=== PATIENT | female | born 1975 | race Caucasian/White ===

== ENCOUNTER 2020-01-26 18:36 | Inpatient (IN) ==
[2020-01-26] MEDS ORDERED: ACETAMINOPHEN 1,000 MG/100 ML VIAL IV STA (19:13)
[2020-01-26] MEDS ORDERED: methylPREDNISolone 125 MG/2 ML VIAL IV STA (19:13)
[2020-01-26] MEDS ORDERED: DiphenhydrAMINE HCL 50 MG/ML VIAL IV STA (19:13)
[2020-01-26] MEDS ORDERED: SODIUM CHLORIDE 0.9% 1000ML 1,000 ML IV SCH (19:15)
[2020-01-26 19:22] LABS: Eosinophils # (auto) 0.09 K/uL (0-0.5); Eosinophils % (auto) 0.6 %; Hemoglobin 13.4 g/dL (12.0-16.0); Immature Granulocytes # (auto) 0.04 K/uL (0.00-0.02); Immature Granulocytes % (auto) 0.3 %; Lymphocytes # (auto) 1.11 K/uL (1.2-3.4); Lymphocytes % (auto) 7.2 %; Mean Corpuscular Hemoglobin 27.5 pg (25-34); Mean Corpuscular Hgb Conc 33.5 g/dL (32-36); Mean Corpuscular Volume 82.1 fL (80-100); Monocytes # (auto) 0.36 K/uL (0.11-0.59); Monocytes % (auto) 2.3 %; Neutrophils % (auto) 89.6 %; Platelet Count 404 K/uL (130-400); RDW Coefficient of Variation 14.1 % (11.5-14.5); RDW Standard Deviation 42.4 fL (36.4-46.3); Red Blood Count 4.87 M/uL (4.2-5.4)
--- NOTE | 2020-01-26 19:22 | Emergency Department Note ---
History of Present Illness General Chief complaint: Allergic Reaction Stated complaint: ALLERGIC REACTION Time Seen by Provider: 01/26/20 18:56 History of Present Illness Maximum Pain Intensity: 7 This is a 44-year-old female presenting to the emergency department for evaluation of allergic reaction symptoms for the past 1 to 2 days. The patient has had an ongoing left breast infection, and was previously on Bactrim. This did not distinctly clear her infection, and she did start Keflex 2 days ago. She states that she took 4 total doses of the antibiotic, with the last dosing being yesterday afternoon. After starting the Keflex she began having hives across her entire body as well as coughing and discomfort in her throat. She did take some Benadryl last evening which did mildly improve her symptoms. Despite stopping the medication she continues to have significant hives. The patient states that she did have a fever of 102.0 F prior to coming into the hospital, but this does seem to have improved upon arrival. The patient does have a past history of breast cancer with left-sided mastectomy and reconstruction. Her last breast surgery was in August of this year at [facility]. She did see her plastic surgeon yesterday, and evidently outpatient CAT scan was performed without evidence of abscess. The patient rates her overall discomfort today is 7/10. Home Medications Home Medications Medication Instructions Recorded Confirmed Type tamoxifen 20 mg tablet 20 mg PO QAM 10/21/19 01/26/20 History goserelin 3.6 mg subcutaneous 3.6 mg SQ Q28D 11/21/19 01/26/20 History implant hydroxyzine HCl 50 mg PO TID PRN 01/26/20 01/26/20 History sulfamethoxazole-trimethoprim 1 tab PO BID 01/26/20 01/26/20 History Allergies Allergy/AdvReac Type Severity Reaction Status Date / Time cephalexin Allergy Intermediate Itchiness Verified 01/26/20 22:03 Past Med/Surg History Medical History Breast cancer, left 07/14/2019 Psoriasis Psoriatic arthritis Surgical History H/O laparoscopy Ovarian cyst History of dilatation and curettage Status post ablation of incompetent vein using laser Bilateral legs Status post left mastectomy with axillary SLN biopsy and immediate reconstruction with glass belt sander on 08/[address] Fox [address]. Nielsen Family History (Updated 10/21/19 @ 10:34 by Janneth Diaz, RN) Mother No problems noted. Father Diabetes Heart palpitations Hypertension Brother No problems noted. Daughter No problems noted. Son No problems noted. Son No problems noted. Son No problems noted. Son Asthma Social History (Updated 10/21/19 @ 10:36 by Janneth Diaz, RN) Smoking Status: Never smoker Cigarettes Per Day: 1/3 PPD x years;; Second Hand Exposure: No; Hx Alcohol Use: No Hx Substance Use: No Preferred Language: Sammarinese Communication Ability: Effective Visual Impairment: No Limitations Hearing Ability: Normal Ski Lift Attendant Required: No Beliefs That Will Affect Care: None marital status: Current Living Situation: Spouse and Family current occupational status: other current occupation: Homemaker Feels Safe at Home: Yes caffeine: Yes (2 cups/day) during the past year weight has: remained stable Review of Systems A total of 10 systems reviewed and were otherwise negative Physical Exam Vital Signs Vital Signs - 24 hr 01/26/20 18:49 01/26/20 19:07 01/26/20 19:37 Temperature 37.5 C Temperature Source Oral Pulse Rate 126 H 108 H 104 H Pulse Rate from SpO2 Sensor 109 H 104 H Respiratory Rate 18 23 19 Respiratory Effort / Characteristics Non-Labored Spontaneous Respiratory Depth Normal Blood Pressure 111/69 139/84 122/94 Blood Pressure Mean 83 98 98 Pulse Oximetry 96 97 96 Oxygen Delivery Method Room Air Sepsis Recent Fever Within 48 Hours No Sepsis New/Unexplained Change in Mental Status N/A Sepsis Action Taken by Nursing No Action Required 01/26/20 19:40 01/26/20 20:55 01/26/20 20:56 Temperature 37.3 C Temperature Source Oral Pulse Rate 88 Pulse Rate from SpO2 Sensor 88 Respiratory Rate 17 Respiratory Effort / Characteristics Respiratory Depth Blood Pressure 128/84 Blood Pressure Mean 94 Pulse Oximetry 94 96 Oxygen Delivery Method Room Air Sepsis Recent Fever Within 48 Hours Sepsis New/Unexplained Change in Mental Status Sepsis Action Taken by Nursing 01/26/20 21:00 01/26/20 21:30 01/26/20 22:00 Temperature Temperature Source Pulse Rate 90 90 82 Pulse Rate from SpO2 Sensor 90 93 H 81 Respiratory Rate 19 24 19 Respiratory Effort / Characteristics Respiratory Depth Blood Pressure 119/80 137/95 132/92 Blood Pressure Mean 85 105 104 Pulse Oximetry 96 95 96 Oxygen Delivery Method Sepsis Recent Fever Within 48 Hours Sepsis New/Unexplained Change in Mental Status Sepsis Action Taken by Nursing VITALS: Vitals are noted on the nurse's note and reviewed by myself. Vital signs with noted tachycardia GENERAL: Well-developed, well-nourished, white female, who is in no acute distress and resting comfortably. Patient is cooperative with the examination. HEAD: Normocephalic atraumatic. EARS: External ear normal. External auditory canals clear, tympanic membranes pearly puentes without erythema or effusion bilaterally. EYES: Pupils equal round and reactive to light and accommodation. Conjunctivae without injection, sclerae without icterus. Extraocular movements intact. NOSE: Patent, turbinates without inflammation or discharge. MOUTH: Mucous membranes moist. Tonsils are not enlarged. Pharynx without erythema, blood, or exudate. Uvula midline. Airway patent. NECK: Supple without nuchal rigidity. No lymphadenopathy. No thyromegaly. Cervical spine is nontender. HEART: Tachycardic rate with regular rhythm LUNGS: Clear to auscultation bilaterally without wheezes, rales or rhonchi. No retractions or accessory muscle use. CHEST: Exam was performed in the presence of female nursing electrical contractor. The lateral and inferior aspect of the left reconstructed breast is erythematous and tender. It is difficult to tell if this is indurated, as it is firm on palpation. Some of this firmness could be related to a saline implant or developing infection. Exam is concerning for persistent cellulitis at a minimum. MUSCULOSKELETAL: Full range of motion in all extremities. NEURO: Patient was alert and oriented to person place and time. CN II through XII grossly intact. SKIN: The skin was with diffuse urticaria throughout Course Administered Medications Discontinued Medications Diphenhydramine HCl (Diphenhydramine Hcl 50 Mg/Ml Vial) 50 mg IV NOW STA Stop: 01/26/20 19:14 Last Admin: 01/26/20 19:28 Dose: 50 mg Documented by: [id number] Sodium Chloride (Nss 1000ml) 1,000 mls @ 999 mls/hr IV .Q1H1M CATRACHO Stop: 01/26/20 20:15 Last Infusion: 01/26/20 20:55 Dose: 0 mls/hr Documented by: [id number] Admin: 01/26/20 19:27 Dose: 999 mls/hr Documented by: [id number] Acetaminophen (Ofirmev) 1,000 mg in 100 mls @ 400 mls/hr IV NOW STA Stop: 01/26/20 19:27 Last Infusion: 01/26/20 19:52 Dose: 0 mls/hr Documented by: [id number] Admin: 01/26/20 19:28 Dose: 400 mls/hr Documented by: [id number] Daptomycin 525 mg/ Syringe 10.5 mls @ 5.25 mls/min IV NOW ONE; Protocol Stop: 01/26/20 21:37 Last Admin: 01/26/20 22:00 Dose: 5.25 mls/min Documented by: [id number] Methylprednisolone (Methylprednisolone 125 Mg/2 Ml Vial) 125 mg IV NOW STA Stop: 01/26/20 19:14 Last Admin: 01/26/20 19:28 Dose: 125 mg Documented by: [id number] Medical Decision Making Differential Diagnosis Differential diagnosis includes: Etiologies such as cellulitis, abscess, osteomyelitis, MRSA infection, DVT, necrotizing fasciitis, dermatitis, drug eruption, as well as others were entertained Laboratory Data Result diagrams: 01/26/20 19:10 01/26/20 19:10 Lab Results 01/26/20 01/26/20 01/26/20 Range/Units 19:10 19:10 19:10 WBC 15.40 H (4.8-10.8) K/uL RBC 4.87 (4.2-5.4) M/uL Hgb 13.4 (12.0-16.0) g/dL Hct 40.0 (37-47) % MCV 82.1 (80-100) fL MCH 27.5 (25-34) pg MCHC 33.5 (32-36) g/dL RDW Std Deviation 42.4 (36.4-46.3) fL RDW Coeff of [place] 14.1 (11.5-14.5) % Plt Count 404 H (130-400) K/uL MPV 9.0 (7.4-10.4) fL Immature Gran % (Auto) 0.3 % Neut % (Auto) 89.6 % Lymph % (Auto) 7.2 % [place] % (Auto) 2.3 % Eos % (Auto) 0.6 % Baso % (Auto) 0.0 % Neut # (Auto) 13.80 H (1.4-6.5) K/uL Lymph # (Auto) 1.11 L (1.2-3.4) K/uL [place] # (Auto) 0.36 (0.11-0.59) K/uL Eos # (Auto) 0.09 (0-0.5) K/uL Baso # (Auto) 0.00 (0-0.2) K/uL Immature Gran # (Auto) 0.04 H (0.00-0.02) K/uL Sodium 139 (136-145) mmol/L Potassium 3.8 (3.5-5.1) mmol/L Chloride 105 (98-107) mmol/L Carbon Dioxide 24 (21-32) mmol/L Anion Gap 10.0 (3-11) BUN 9 (7-18) mg/dl Creatinine 1.00 (0.6-1.2) mg/dl Est Cr Clr Drug Dosing 99.7 ml/min Est GFR ( Amer) 80.5 Est GFR (Non-Af Amer) 69.4 BUN/Creatinine Ratio 8.8 L (10-20) Glucose 131 H (70-99) mg/dl Lactate (0.4-2.0) mmol/L Calcium 8.3 L (8.5-10.1) mg/dl Magnesium 2.2 (1.8-2.4) mg/dl Total Bilirubin 0.7 (0.2-1) mg/dl AST 53 H (15-37) U/L ALT 97 H (12-78) U/L Alkaline Phosphatase 67 (45-117) U/L Troponin I < 0.015 (0-0.045) ng/ml Total Protein 7.5 (6.4-8.2) gm/dl Albumin 3.0 L (3.4-5.0) gm/dl Globulin 4.5 H (2.5-4.0) gm/dl Albumin/Globulin Ratio 0.7 L (0.9-2) TSH 0.630 (0.300-4.500) uIu/ml Urine Color Urine Appearance (Clear) Urine pH (4.5-7.5) Ur Specific [place] (1.000-1.030) Urine Protein (Negative) Urine Glucose (UA) (Negative) Urine Ketones (Negative) Urine Blood (Negative) Urine Nitrite (Negative) Urine Bilirubin (Negative) Urine Urobilinogen (Negative) Ur Leukocyte Esterase (Negative) Urine WBC (Auto) (0-5) /hpf Urine RBC (Auto) (0-4) /hpf U Hyaline Cast (Auto) (0-5) /lpf U Epithel Cells (Auto) (0-5) /lpf Urine Bacteria (Auto) (Negative) Urine Mucus (None Prsent) POC Ur Test (NEG) 01/26/20 01/26/20 01/26/20 Range/Units 19:30 19:32 19:32 WBC (4.8-10.8) K/uL RBC (4.2-5.4) M/uL Hgb (12.0-16.0) g/dL Hct (37-47) % MCV (80-100) fL MCH (25-34) pg MCHC (32-36) g/dL RDW Std Deviation (36.4-46.3) fL RDW Coeff of [place] (11.5-14.5) % Plt Count (130-400) K/uL MPV (7.4-10.4) fL Immature Gran % (Auto) % Neut % (Auto) % Lymph % (Auto) % [place] % (Auto) % Eos % (Auto) % Baso % (Auto) % Neut # (Auto) (1.4-6.5) K/uL Lymph # (Auto) (1.2-3.4) K/uL [place] # (Auto) (0.11-0.59) K/uL Eos # (Auto) (0-0.5) K/uL Baso # (Auto) (0-0.2) K/uL Immature Gran # (Auto) (0.00-0.02) K/uL Sodium (136-145) mmol/L Potassium (3.5-5.1) mmol/L Chloride (98-107) mmol/L Carbon Dioxide (21-32) mmol/L Anion Gap (3-11) BUN (7-18) mg/dl Creatinine (0.6-1.2) mg/dl Est Cr Clr Drug Dosing ml/min Est GFR ( Amer) Est GFR (Non-Af Amer) BUN/Creatinine Ratio (10-20) Glucose (70-99) mg/dl Lactate 1.2 (0.4-2.0) mmol/L Calcium (8.5-10.1) mg/dl Magnesium (1.8-2.4) mg/dl Total Bilirubin (0.2-1) mg/dl AST (15-37) U/L ALT (12-78) U/L Alkaline Phosphatase (45-117) U/L Troponin I (0-0.045) ng/ml Total Protein (6.4-8.2) gm/dl Albumin (3.4-5.0) gm/dl Globulin (2.5-4.0) gm/dl Albumin/Globulin Ratio (0.9-2) TSH (0.300-4.500) uIu/ml Urine Color [place] Urine Appearance Cloudy A (Clear) Urine pH 5.0 (4.5-7.5) Ur Specific [place] 1.028 (1.000-1.030) Urine Protein Trace H (Negative) Urine Glucose (UA) Negative (Negative) Urine Ketones Trace H (Negative) Urine Blood Negative (Negative) Urine Nitrite Positive A (Negative) Urine Bilirubin 1+ H (Negative) Urine Urobilinogen Negative (Negative) Ur Leukocyte Esterase Trace H (Negative) Urine WBC (Auto) 5-10 H (0-5) /hpf Urine RBC (Auto) 5-10 H (0-4) /hpf U Hyaline Cast (Auto) 0 (0-5) /lpf U Epithel Cells (Auto) >30 H (0-5) /lpf Urine Bacteria (Auto) 1+ H (Negative) Urine Mucus Present A (None Prsent) POC Ur Test NEG (NEG) Imaging Data Radiologist's Impression: US breast LT limited CLINICAL HISTORY: Left breast infection. R/o abscess. COMPARISON STUDY: Chest CT 01/24/2020. FINDINGS: Real-time sonographic imaging of the left breast was performed to evaluate for an abscess. A left breast implant is noted. Immediately adjacent to the left breast implant there is a thin sliver of fluid. This measures a maximal thickness of 5 mm with a greatest length of 6 cm. This is best seen at the 6:00 location of the breast. This has improved compared to the recent chest CT. IMPRESSION: Decrease in size in the small amount of fluid abutting the inferior aspect of the left breast implant. This is nonspecific and could represent a postoperative seroma. Secondary infection cannot be excluded on the basis of imaging alone. MDM Narrative Physical exam and history were performed. Nursing notes, EMR, and Medication List were personally reviewed. Patient appears to have allergic reaction bring her to the ER. The patient has significant hives throughout, and I suspect this is from her Keflex. Additionally the patient is tachycardic and reportedly had a fever at home. Her exam is concerning for a left breast cellulitis which seems to have been ongoing for the past 1 to 2 weeks. IV access was established and labs were obtained. The patient was hydrated with normal saline and given IV Tylenol, IV Benadryl, and IV Solu-Medrol for her symptoms. Out of concern for possible developing abscess, an ultrasound was ordered. An order was placed for continuous cardiac monitoring. The monitor shows a rate of 82 with normal sinus rhythm after treatment. The patient's blood work is as above and was reviewed. She does have an elevated white blood cell count of 15,000 with a left shift. She does not have significant anemia or gross electrolyte imbalance. Glucose is 131. She has slightly elevated transaminases. Troponin x1 is negative. TSH shows euthyroid state. Urine is quite contaminated, and certainly could represent a UTI. I did ask the patient if she had UTI symptoms, and she does not currently have any symptoms. test is negative. I do feel that waiting for culture is important on her UTI as she does not have any symptoms. Lactic acid is negative and blood cultures x2 is pending. Ultrasound was reviewed by myself and radiology. The patient appears to have a small amount of fluid just in front of the breast implant. This does seem to be decreasing in size compared to the CAT scan, which is encouraging. The patient was reevaluated multiple times throughout the course of her stay. Her vital signs normalized after fluids and treatment here. The patient urticaria appears to be roughly 75% improved, and the patient feels much better. Overall I do not feel that she is well for discharge home. The patient has been fighting an infection, and this may be worsening. The patient was started on daptomycin after discussing the case with the on-call [facility] hospitalist. They will evaluate the patient here in the ER for further management. Please see their dictation for further patient course, plan, and disposition. The chart was completed utilizing [employer] Speech Voice Recognition Software. Grammatical errors, random word insertions, pronoun errors, and incomplete sentences are an occasional consequence of this system due to software limitations, ambient noise, and hardware issues. Any formal questions or concerns about the content, text, or information contained within the body of this dictation should be directly addressed to the provider for clarification. . Impression & Plan Cellulitis of left breast, Status post left mastectomy, Drug allergy, Fever Discharge Plan Visit Data Chief Complaint: Allergic Reaction Stated Complaint: ALLERGIC REACTION ED Provider: John Marinelli ED Midlevel Provider: Anoop Aj Discharge Problem: Cellulitis of left breast, Status post left mastectomy, Drug allergy, Fever Forms Stand Alone Forms: [facility] Context app Prescriptions Prescriptions: No Action tamoxifen 20 mg tablet 20 mg PO QAM RF: 0 Zoladex 3.6 mg implant 3.6 mg SQ Q28D RF: 0 hydroxyzine HCl 50 mg tablet 50 mg PO TID PRN (Reason: Itching) RF: 0 sulfamethoxazole-trimethoprim 800-160 mg tablet 1 tab PO BID RF: 0 Referrals Referrals: Manuela Kim DO [Primary Care Provider] - Discharge Problem: Fever Qualifiers: Fever type: unspecified Qualified Code(s): R50.9 - Fever, unspecified
[2020-01-26 19:41] LABS: Alanine Aminotransferase 97 U/L (12-78); Aspartate Aminotransferase 53 U/L (15-37); BUN Creatinine Ratio 8.8 (10-20); Blood Urea Nitrogen 9 mg/dl (7-18); Calcium 8.3 mg/dl (8.5-10.1); Carbon Dioxide 24 mmol/L (21-32); Chloride 105 mmol/L (98-107); Creatinine Clr Calc Pharmacy 99.7 ml/min; Est GFR (African American) 80.5; Est GFR (Non-African American) 69.4; Glucose 131 mg/dl (70-99); Potassium 3.8 mmol/L (3.5-5.1); Sodium 139 mmol/L (136-145)
[2020-01-26 19:51] LABS: Albumin Globulin Ratio 0.7 (0.9-2); Alkaline Phosphatase 67 U/L (45-117); Bilirubin,Total 0.7 mg/dl (0.2-1); Globulin 4.5 gm/dl (2.5-4.0); Total Protein 7.5 gm/dl (6.4-8.2); Troponin I < 0.015 ng/ml (0-0.045)
[2020-01-26 19:53] LABS: Appearance Urine Cloudy (Clear); Bacteria Urine Automated 1+ (Negative); Blood Urine Negative (Negative); Color Urine Orange; Epithelial Cell Urine Auto >30 /lpf (0-5); Glucose Urine UA Negative (Negative); Ketones Urine Trace (Negative); Leukocyte Esterase Urine Trace (Negative); Nitrite Urine Positive (Negative); Protein Urine Trace (Negative); Specific Gravity Urine 1.028 (1.000-1.030); Urobilinogen Urine Negative (Negative)
[2020-01-26 19:57] LABS: Bilirubin Urine 1+ (Negative)
[2020-01-26 19:58] LABS: Ictotest Urine Positive (Negative)
[2020-01-26 20:08] LABS: Cast Urine Automated 0 /lpf (0-5)
[2020-01-26 20:09] LABS: Mucus Urine Present (None Prsent)
--- NOTE | 2020-01-26 21:03 | Ultrasound Report ---
US breast LT limited CLINICAL HISTORY: Left breast infection. R/o abscess. COMPARISON STUDY: Chest CT 01/24/2020. FINDINGS: Real-time sonographic imaging of the left breast was performed to evaluate for an abscess. A left breast implant is noted. Immediately adjacent to the left breast implant there is a thin slive r of fluid. This measures a maximal thickness of 5 mm with a greatest length of 6 cm. This is best se en at the 6:00 location of the breast. This has improved compared to the recent chest CT. IMPRESSION: Decrease in size in the small amount of fluid abutting the inferior aspect of the left b reast implant. This is nonspecific and could represent a postoperative seroma. Secondary infection ca nnot be excluded on the basis of imaging alone. ACT 112: Negative or not required by law. Electronically signed by: Dallas Cameron M.D. 01/26/2020 9:02 PM
[2020-01-26] MEDS ORDERED: DAPTOMYCIN CONSULT ACTIVE PRN (21:36)
[2020-01-26] MEDS ORDERED: DAPTOmycin 525 MG in SYRINGE 0 ML IV ONE (21:36)
[2020-01-26] MEDS ORDERED: AZTREONAM 2,000 MG in DEXTROSE 5% 100 ML IV STA (22:52)
--- NOTE | 2020-01-26 22:52 | History & Physical Report ---
Date of Service January 26, 2020 Assessment & Plan (1) Sepsis: hx left breast cancer status post surgery/radiation on Tamoxifen Rx Possible infected seroma on ultrasound Keflex hypersensitivity Hyperglycemia rule out DM Medical telemetry Cultures, Daptomycin, Azactam for now General Surgery consult Re: Possible infected seroma on breast ultrasound (ER provider already in touch with Dr. Jesus who recommends consulting [facility] General Surgery in a.m. for continuity of care.) May benefit from [facility] ID consult. Watch out for late phase reaction for Keflex hypersensitivity; Epinephrine, Benadryl as needed Check hemoglobin A1c DVT prophylaxis per Lovenox subcu Full code Text document was generated using [employer] voice recognition software. It may contain grammatical or spelling errors. Kindly contact undersigned for clarification of any documentation item in q uestion. History of Present Illness Chief Complaint: Allergic reaction Primary Care Provider: Manuela Kim DO History obtained from patient, family, and records. Medical history significant for left breast cancer status post surgery/radiation on Tamoxifen Rx, past tobacco abuse. Last 2012 under obstetrics service for childbirth via vaginal delivery. Patient underwent L mastectomy with prison classification counselor placement for purposes of reconstru ction for breast cancer last August 2019 by [facility] Plastic Surgery. 2 weeks ago, patient noted fever, left breast area swelling for which Bactrim was prescribed. Minimal improvement with outpatient Bactrim course. On follow-up at [facility] urgent care 2 days ago, increased firmness/redness noted on L breast. Patient given prescription for Keflex. Outpatient CT chest without significant findings except for left-sided breast implant. On follow-up with plastic surgeon yesterday, patient feeling better after first few doses of Keflex. Recommendation was to continue Keflex and to switch to Bactrim if with fever or pain. Consider chronic suppressive oral antibiotics as a bridge to the GORDON flap reconstructive surgery June 2020 as per records. Yesterday afternoon, patient noted hives on her arms, torso and neck. Patient attributed hives to Keflex hypersensitivity. Patient stopped Keflex and took Benadryl. Plastic surgeon recommended Bactrim Rx as Keflex substitute. Today, patient noted worsening hives all over her body despite Benadryl Rx and stopping Keflex. Face, eyes and throat were starting to get tight. Patient denies chest pain, S OB. Dry cough symptoms from irritation as per patient. At the ER, patient given Benadryl, Solu-Medrol for hypersensitivity reaction. IV Daptomycin given at the ER for possible sepsis. Medical History as above Surgical History : Dental surgery, breast biopsy, lymph node biopsy, left mastectomy, breast reconstruction with prison classification counselor, vascular procedure, Family History : Heart disease, lung cancer Personal/Social history : Past tobacco abuse, occasional EtOH intake, office work Allergies Allergy/AdvReac Type Severity Reaction Status Date / Time cephalexin Allergy Intermediate Itchiness Verified 01/26/20 22:03 Home Medications Home Medications Medication Instructions Recorded Confirmed Type tamoxifen 20 mg tablet 20 mg PO QAM 10/21/19 01/26/20 History goserelin 3.6 mg subcutaneous 3.6 mg SQ Q28D 11/21/19 01/26/20 History implant hydroxyzine HCl 50 mg PO TID PRN 01/26/20 01/26/20 History sulfamethoxazole-trimethoprim 1 tab PO BID 01/26/20 01/26/20 History Past Med/Surg History Medical History Breast cancer, left 07/14/2019 Psoriasis Psoriatic arthritis Surgical History H/O laparoscopy Ovarian cyst History of dilatation and curettage Status post ablation of incompetent vein using laser Bilateral legs Status post left mastectomy with axillary SLN biopsy and immediate reconstruction with prison classification counselor on 09/08/[address] Fox [address]. Nielsen Family History (Updated 10/21/19 @ 10:34 by Janneth Diaz RN) Mother No problems noted. Father Diabetes Heart palpitations Hypertension Brother No problems noted. Daughter No problems noted. Son No problems noted. Son No problems noted. Son No problems noted. Son Asthma Social History (Updated 10/21/19 @ 10:36 by Janneth Diaz RN) Smoking Status: Former smoker Cigarettes Per Day: 1/3 PPD x years;; Smoking End Date: 1997; Second Hand Exposure: No; Hx Alcohol Use: Yes Alcohol type: beer Hx Substance Use: No Preferred Language: Czech Communication Ability: Effective Visual Impairment: No Limitations Hearing Ability: Normal Cement Or Concrete Finishing Supervisor Required: No Beliefs That Will Affect Care: None marital status: Current Living Situation: Spouse Current Living Situation Comment: With current occupational status: other current occupation: Homemaker Feels Safe at Home: Yes Safety Concerns: Feels Safe At This Time caffeine: Yes (2 cups/day) during the past year weight has: remained stable Review of Systems Review of Systems: As per HPI, all 10 systems reviewed, all other ROS negative Physical Exam Physical Exam: GENERAL: Comfortable, pleasant, obese, no respiratory distress SKIN: Normal color, warm HEENT: Bespectacled, [place] palpebral conjunctivae, no ptosis, dry buccal mucosa NECK : Supple, no tenderness CHEST : CTA, induration left breast with minimal tenderness HEART : RRR, no obvious murmurs ABDOMEN: Some distention, nontender EXTREMITIES : No LE swelling/tenderness, no other conspicuous deformities noted NEUROLOGIC : Coherent, no facial asymmetry, no other gross focality Results & Data Results & Data ([facility]) Vital Signs (Past 12 Hours) Vital Signs Temp Pulse Resp BP Pulse Ox 01/26/20 22:00 82 19 132/92 96 01/26/20 21:30 90 24 137/95 95 01/26/20 21:00 90 19 119/80 96 01/26/20 20:56 37.3 C 01/26/20 20:55 88 17 128/84 96 01/26/20 19:40 94 01/26/20 19:37 104 H 19 122/94 96 01/26/20 19:07 108 H 23 139/84 97 01/26/20 18:49 37.5 C 126 H 18 111/69 96 Laboratory Results Laboratory Results WBC 15.40 K/uL (4.8-10.8) H 01/26/20 19:10 RBC 4.87 M/uL (4.2-5.4) 01/26/20 19:10 Hgb 13.4 g/dL (12.0-16.0) 01/26/20 19:10 Hct 40.0 % (37-47) 01/26/20 19:10 MCV 82.1 fL (80-100) 01/26/20 19:10 MCH 27.5 pg (25-34) 01/26/20 19:10 MCHC 33.5 g/dL (32-36) 01/26/20 19:10 RDW Std Deviation 42.4 fL (36.4-46.3) 01/26/20 19:10 RDW Coeff of Mitchell 14.1 % (11.5-14.5) 01/26/20 19:10 Plt Count 404 K/uL (130-400) H 01/26/20 19:10 MPV 9.0 fL (7.4-10.4) 01/26/20 19:10 Immature Gran % (Auto) 0.3 % 01/26/20 19:10 Neut % (Auto) 89.6 % 01/26/20 19:10 Lymph % (Auto) 7.2 % 01/26/20 19:10 [place] % (Auto) 2.3 % 01/26/20 19:10 Eos % (Auto) 0.6 % 01/26/20 19:10 Baso % (Auto) 0.0 % 01/26/20 19:10 Neut # (Auto) 13.80 K/uL (1.4-6.5) H 01/26/20 19:10 Lymph # (Auto) 1.11 K/uL (1.2-3.4) L 01/26/20 19:10 [place] # (Auto) 0.36 K/uL (0.11-0.59) 01/26/20 19:10 Eos # (Auto) 0.09 K/uL (0-0.5) 01/26/20 19:10 Baso # (Auto) 0.00 K/uL (0-0.2) 01/26/20 19:10 Immature Gran # (Auto) 0.04 K/uL (0.00-0.02) H 01/26/20 19:10 Sodium 139 mmol/L (136-145) 01/26/20 19:10 Potassium 3.8 mmol/L (3.5-5.1) 01/26/20 19:10 Chloride 105 mmol/L (98-107) 01/26/20 19:10 Carbon Dioxide 24 mmol/L (21-32) 01/26/20 19:10 Anion Gap 10.0 (3-11) 01/26/20 19:10 BUN 9 mg/dl (7-18) 01/26/20 19:10 Creatinine 1.00 mg/dl (0.6-1.2) 01/26/20 19:10 Est Cr Clr Drug Dosing 99.7 ml/min 01/26/20 19:10 Est GFR ( Amer) 80.5 01/26/20 19:10 Est GFR (Non-Af Amer) 69.4 01/26/20 19:10 BUN/Creatinine Ratio 8.8 (10-20) L 01/26/20 19:10 Glucose 131 mg/dl (70-99) H 01/26/20 19:10 Lactate 1.2 mmol/L (0.4-2.0) 01/26/20 19:30 Calcium 8.3 mg/dl (8.5-10.1) L 01/26/20 19:10 Magnesium 2.2 mg/dl (1.8-2.4) 01/26/20 19:10 Total Bilirubin 0.7 mg/dl (0.2-1) 01/26/20 19:10 AST 53 U/L (15-37) H 01/26/20 19:10 ALT 97 U/L (12-78) H 01/26/20 19:10 Alkaline Phosphatase 67 U/L (45-117) 01/26/20 19:10 Troponin I < 0.015 ng/ml (0-0.045) 01/26/20 19:10 Total Protein 7.5 gm/dl (6.4-8.2) 01/26/20 19:10 Albumin 3.0 gm/dl (3.4-5.0) L 01/26/20 19:10 Globulin 4.5 gm/dl (2.5-4.0) H 01/26/20 19:10 Albumin/Globulin Ratio 0.7 (0.9-2) L 01/26/20 19:10 TSH 0.630 uIu/ml (0.300-4.500) 01/26/20 19:10 Urine Color [place] 01/26/20 19:32 Urine Appearance Cloudy (Clear) A 01/26/20 19: Urine pH 5.0 (4.5-7.5) 01/26/20: Ur Specific [place] 1.028 (1.000-1.030) 01/26/20 19:32 Urine Protein Trace (Negative) H 01/26/20 19:32 Urine Glucose (UA) Negative (Negative) 01/26/20 19: Urine Ketones Trace (Negative) H 01/26/20 19: Urine Blood Negative (Negative) 01/26/20 19:32 Urine Nitrite Positive (Negative) A 01/26/20 19:32 Urine Bilirubin 1+ (Negative) H 01/26/20 19:32 Urine Urobilinogen Negative (Negative) 01/26/20 19:32 Ur Leukocyte Esterase Trace (Negative) H 01/26/20 19:32 Urine WBC (Auto) 5-10 /hpf (0-5) H 01/26/20 19:32 Urine RBC (Auto) 5-10 /hpf (0-4) H 01/26/20: U Hyaline Cast (Auto) 0 /lpf (0-5) 01/26/20 19:32 U Epithel Cells (Auto) >30 /lpf (0-5) H 01/26/20 19:32 Urine Bacteria (Auto) 1+ (Negative) H 01/26/20 19:32 Urine Mucus Present (None Prsent) A 01/26/20 19:32 POC Ur Test NEG (NEG) 01/26/20 19:32 Diagnostic Findings L Breast ultrasound: Decrease in size in the small amount of fluid abutting the inferior aspect of the left breast implant. This is nonspecific and could represent a postoperative seroma. Secondary infection cannot be excluded on the basis of imaging alone.
[2020-01-27] MEDS ORDERED: LORazepam 0.5 MG/1 ML VIAL IV PRN (00:17)
[2020-01-27] MEDS ORDERED: ACETAMINOPHEN 325 MG TAB PO PRN (00:17)
[2020-01-27] MEDS ORDERED: LORATADINE 10 MG TAB PO ONE (00:17)
[2020-01-27] MEDS ORDERED: DiphenhydrAMINE HCL 50 MG/ML VIAL IV PRN (00:17)
[2020-01-27] MEDS ORDERED: IBUPROFEN 200 MG TAB PO PRN (00:17)
[2020-01-27] MEDS ORDERED: KETOROLAC TROMETHAMINE 15 MG/ML VIAL IV PRN (00:17)
[2020-01-27] MEDS ORDERED: NSS + 20MEQ KCL 20 MEQ/1,000 ML BAG IV ONE (00:30)
[2020-01-27] MEDS ORDERED: AZTREONAM CONSULT ACTIVE PRN (02:22)
[2020-01-27 05:58] LABS: Estimated Average Glucose 131 mg/dl; Hemoglobin A1C 6.2 % (4.5-5.6)
[2020-01-27 07:02] LABS: Hematocrit (blood only) 34.4 % (37-47); Hemoglobin 11.5 g/dL (12.0-16.0); Immature Granulocytes # (auto) 0.02 K/uL (0.00-0.02); Immature Granulocytes % (auto) 0.2 %; Lymphocytes # (auto) 0.56 K/uL (1.2-3.4); Lymphocytes % (auto) 5.6 %; Mean Corpuscular Hemoglobin 27.4 pg (25-34); Mean Corpuscular Hgb Conc 33.4 g/dL (32-36); Mean Corpuscular Volume 81.9 fL (80-100); Mean Platelet Volume 8.9 fL (7.4-10.4); Monocytes # (auto) 0.09 K/uL (0.11-0.59); Monocytes % (auto) 0.9 %; Neutrophils # (auto) 9.32 K/uL (1.4-6.5); Neutrophils % (auto) 93.3 %; Platelet Count 325 K/uL (130-400); RDW Standard Deviation 41.8 fL (36.4-46.3); White Blood Count 9.99 K/uL (4.8-10.8)
--- NOTE | 2020-01-27 07:42 | XRay Report ---
XR chest 1V portable CLINICAL HISTORY: sepsis dyspnea COMPARISON STUDY: No previous studies for comparison. FINDINGS: The bones soft tissues and hemidiaphragms are normal. The cardiomediastinal silhouette is n ormal. The lungs are clear. The pulmonary vasculature is normal. IMPRESSION: Negative chest. ACT 112: Negative or not required by law. The above report was generated using voice recognition software. It may contain grammatical, syntax or spelling errors. Electronically signed by: Hans Busch M.D. 01/27/2020 7:41 AM
[2020-01-27] MEDS: AZTREONAM 2,000 MG in DEXTROSE 5% 100 ML IV SCH ×2 (07:49→15:48)
[2020-01-27 07:50] LABS: Albumin Level 2.5 gm/dl (3.4-5.0); BUN Creatinine Ratio 12.2 (10-20); Bilirubin Direct 0.1 mg/dl (0-0.2); Bilirubin,Total 0.4 mg/dl (0.2-1); Calcium 8.1 mg/dl (8.5-10.1); Creatinine Clr Calc Pharmacy 142.4 ml/min; Est GFR (African American) 123.9; Est GFR (Non-African American) 106.9; Total Protein 6.8 gm/dl (6.4-8.2)
[2020-01-27] MEDS ORDERED: TAMOXIFEN CITRATE 10 MG TABLET PO SCH (09:00)
[2020-01-27] MEDS ORDERED: ENOXAPARIN INJ 40 MG/0.4 ML SYR SQ SCH (09:00)
--- NOTE | 2020-01-27 10:51 | Surgery Consultation ---
Date of Consultation January 27, 2020 Assessment & Plan (1) Status post left mastectomy: S/p left mastectomy with reconstruction and tissue tube knitter in August [address] Fox/Dr[address] Nielsen at [facility]. History of left chest wall cellulitis treated originally with Bactrim 2 weeks ago and then oral keflex started on Thursday due to recurrent symptoms. Ultrasound with decreasing fluid inferior aspect of left breast tube knitter, improved compared to CT scan two days earlier. Plan: No evidence of cellulitis. Radiation changes to left chest wall Advised patient to not take Keflex Continue medical management She should reach out to her plastic surgeon for further recommendations of ant ibiotic therapy as there is no real signs of cellulitis on exam. Okay from surgical standpoint for discharge once medically cleared. (2) Drug allergy: Recent transition to oral Keflex on Thursday for continued cellulitis of left chest wall s/p mastectomy and reconstruction with tissue tube knitter. Keflex has been discontinued, hives continue to improve. Continue medical management Dr. cartagena has seen and examined pt, agrees with above. History of Present Illness Reason for Consultation: left breast swelling Requesting Physician: Jasvir Baldwin MD Attending Physician: Ken Lozano MD History of Present Illness Sadie is a 44 year-old female who is s/p left breast mastectomy with tube knitter placement by Dr. Fox and Dr. Nielsen at [facility] in August of this year. She developed left breast cellulitis 2 weeks ago and was placed on Bactrim therapy which did not treat the infection completely so her antibiotics were switched to Keflex on this Thursday. She states she saw Dr. Nielsen in office on Thursday in which he discussed three options of treatment: continued oral antibiotics, need for prison IV abx with PICC line if has fevers on oral antibiotics and if not improving , or removal of tissue tube knitter. She developed hives yesterday in which plastic surgery office advised her to stop Keflex and ordered oral Bactrim again which she has not started yet since she presented to ED with worsening allergic reaction. Sadie states she is feeling better. Denies of any breast/chest pain since the original infection two weeks ago. Actually feeling pretty good. Allergies Allergy/AdvReac Type Severity Reaction Status Date / Time cephalexin Allergy Intermediate Itchiness Verified 01/26/20 22:03 Home Medications Home Medications Medication Instructions Recorded Confirmed Type tamoxifen 20 mg tablet 20 mg PO QAM 10/21/19 01/26/20 History goserelin 3.6 mg subcutaneous 3.6 mg SQ Q28D 11/21/19 01/26/20 History implant hydroxyzine HCl 50 mg PO TID PRN 01/26/20 01/26/20 History sulfamethoxazole-trimethoprim 1 tab PO BID 01/26/20 01/26/20 History Patient History Medical History Breast cancer, left 07/14/2019 Psoriasis Psoriatic arthritis Surgical History H/O laparoscopy Ovarian cyst History of dilatation and curettage Status post ablation of incompetent vein using laser Bilateral legs Status post left mastectomy with axillary SLN biopsy and immediate reconstruction with tube knitter on 09/08/[address] Fox [address]. Nielsen Family History (Updated 10/21/19 @ 10:34 by Janneth Diaz RN) Mother No problems noted. Father Diabetes Heart palpitations Hypertension Brother No problems noted. Daughter No problems noted. Son No problems noted. Son No problems noted. Son No problems noted. Son Asthma Social History (Updated 10/21/19 @ 10:36 by Janneth Diaz, TWIN) Smoking Status: Former smoker Cigarettes Per Day: 1/3 PPD x years;; Smoking End Date: 1997; Second Hand Exposure: No; Hx Alcohol Use: Yes Alcohol type: beer Hx Substance Use: No Preferred Language: Azeri Communication Ability: Effective Visual Impairment: No Limitations Hearing Ability: Normal Digital Imaging Technician Required: No Beliefs That Will Affect Care: None marital status: Current Living Situation: Spouse Current Living Situation Comment: With current occupational status: other current occupation: Homemaker Feels Safe at Home: Yes Safety Concerns: Feels Safe At This Time caffeine: Yes (2 cups/day) during the past year weight has: remained stable Review of Systems Review of Systems: All systems reviewed & are unremarkable except as noted in HPI & below Physical Exam Constitutional: WD/WN, vitals as above not ill appearing Respiratory: normal respiratory effort; no respiratory distress Chest (Breasts): Additional Comments: There are some hives still present on chest wall bilaterally Left chest: Left mastectomy with tissue tube knitter present, radiation changes, no definitive signs of cellulitis, slightly warm to touch, radiation changes, no tenderness to palpation. No induration or fluctuance Psychiatric: A+Ox3, euthymic affect Results & Data ([facility]) Vital Signs (Past 12 Hours) Vital Signs Temp Pulse Pulse Resp BP BP Pulse Ox 01/27/20 03:41 36.5 C 68 18 124/79 97 01/27/20 03:13 69 01/27/20 00:15 36.6 C 79 16 117/80 95 01/26/20 23:39 75 16 127/79 97 Laboratory Results 01/27/20 01/27/20 01/26/20 Range/Units 06:43 06:43 19:32 WBC 9.99 (4.8-10.8) K/uL RBC 4.20 (4.2-5.4) M/uL Hgb 11.5 L (12.0-16.0) g/dL Hct 34.4 L (37-47) % MCV 81.9 (80-100) fL MCH 27.4 (25-34) pg MCHC 33.4 (32-36) g/dL RDW Std Deviation 41.8 (36.4-46.3) fL RDW Coeff of Mitchell 14.0 (11.5-14.5) % Plt Count 325 (130-400) K/uL MPV 8.9 (7.4-10.4) fL Immature Gran % (Auto) 0.2 % Neut % (Auto) 93.3 % Lymph % (Auto) 5.6 % [place] % (Auto) 0.9 % Eos % (Auto) 0.0 % Baso % (Auto) 0.0 % Neut # (Auto) 9.32 H (1.4-6.5) K/uL Lymph # (Auto) 0.56 L (1.2-3.4) K/uL [place] # (Auto) 0.09 L (0.11-0.59) K/uL Eos # (Auto) 0.00 (0-0.5) K/uL Baso # (Auto) 0.00 (0-0.2) K/uL Immature Gran # (Auto) 0.02 (0.00-0.02) K/uL Sodium 141 (136-145) mmol/L Potassium 4.0 (3.5-5.1) mmol/L Chloride 110 H (98-107) mmol/L Carbon Dioxide 24 (21-32) mmol/L Anion Gap 7.0 (3-11) BUN 8 (7-18) mg/dl Creatinine 0.70 D (0.6-1.2) mg/dl Est Cr Clr Drug Dosing 142.4 ml/min Est GFR ( Amer) 123.9 Est GFR (Non-Af Amer) 106.9 BUN/Creatinine Ratio 12.2 (10-20) Glucose 154 H (70-99) mg/dl Estimat Average Glucose mg/dl Hemoglobin A1c (4.5-5.6) % Lactate (0.4-2.0) mmol/L Calcium 8.1 L (8.5-10.1) mg/dl Magnesium (1.8-2.4) mg/dl Total Bilirubin 0.4 (0.2-1) mg/dl Direct Bilirubin 0.1 (0-0.2) mg/dl AST 36 (15-37) U/L ALT 89 H (12-78) U/L Alkaline Phosphatase 57 (45-117) U/L Troponin I (0-0.045) ng/ml Total Protein 6.8 (6.4-8.2) gm/dl Albumin 2.5 L (3.4-5.0) gm/dl Globulin (2.5-4.0) gm/dl Albumin/Globulin Ratio (0.9-2) TSH (0.300-4.500) uIu/ml Urine Color Urine Appearance (Clear) Urine pH (4.5-7.5) Ur Specific [place] (1.000-1.030) Urine Protein (Negative) Urine Glucose (UA) (Negative) Urine Ketones (Negative) Urine Blood (Negative) Urine Nitrite (Negative) Urine Bilirubin (Negative) Urine Urobilinogen (Negative) Ur Leukocyte Esterase (Negative) Urine WBC (Auto) (0-5) /hpf Urine RBC (Auto) (0-4) /hpf U Hyaline Cast (Auto) (0-5) /lpf U Epithel Cells (Auto) (0-5) /lpf Urine Bacteria (Auto) (Negative) Urine Mucus (None Prsent) POC Ur Test NEG (NEG) 01/26/20 01/26/20 01/26/20 Range/Units 19:32 19:30 19:10 WBC (4.8-10.8) K/uL RBC (4.2-5.4) M/uL Hgb (12.0-16.0) g/dL Hct (37-47) % MCV (80-100) fL MCH (25-34) pg MCHC (32-36) g/dL RDW Std Deviation (36.4-46.3) fL RDW Coeff of [place] (11.5-14.5) % Plt Count (130-400) K/uL MPV (7.4-10.4) fL Immature Gran % (Auto) % Neut % (Auto) % Lymph % (Auto) % [place] % (Auto) % Eos % (Auto) % Baso % (Auto) % Neut # (Auto) (1.4-6.5) K/uL Lymph # (Auto) (1.2-3.4) K/uL [place] # (Auto) (0.11-0.59) K/uL Eos # (Auto) (0-0.5) K/uL Baso # (Auto) (0-0.2) K/uL Immature Gran # (Auto) (0.00-0.02) K/uL Sodium (136-145) mmol/L Potassium (3.5-5.1) mmol/L Chloride (98-107) mmol/L Carbon Dioxide (21-32) mmol/L Anion Gap (3-11) BUN (7-18) mg/dl Creatinine (0.6-1.2) mg/dl Est Cr Clr Drug Dosing ml/min Est GFR ( Amer) Est GFR (Non-Af Amer) BUN/Creatinine Ratio (10-20) Glucose (70-99) mg/dl Estimat Average Glucose mg/dl Hemoglobin A1c (4.5-5.6) % Lactate 1.2 (0.4-2.0) mmol/L Calcium (8.5-10.1) mg/dl Magnesium 2.2 (1.8-2.4) mg/dl Total Bilirubin (0.2-1) mg/dl Direct Bilirubin (0-0.2) mg/dl AST (15-37) U/L ALT (12-78) U/L Alkaline Phosphatase (45-117) U/L Troponin I (0-0.045) ng/ml Total Protein (6.4-8.2) gm/dl Albumin (3.4-5.0) gm/dl Globulin (2.5-4.0) gm/dl Albumin/Globulin Ratio (0.9-2) TSH Cancelled (0.300-4.500) uIu/ml Urine Color [place] Urine Appearance Cloudy A (Clear) Urine pH 5.0 (4.5-7.5) Ur Specific [place] 1.028 (1.000-1.030) Urine Protein Trace H (Negative) Urine Glucose (UA) Negative (Negative) Urine Ketones Trace H (Negative) Urine Blood Negative (Negative) Urine Nitrite Positive A (Negative) Urine Bilirubin 1+ H (Negative) Urine Urobilinogen Negative (Negative) Ur Leukocyte Esterase Trace H (Negative) Urine WBC (Auto) 5-10 H (0-5) /hpf Urine RBC (Auto) 5-10 H (0-4) /hpf U Hyaline Cast (Auto) 0 (0-5) /lpf U Epithel Cells (Auto) >30 H (0-5) /lpf Urine Bacteria (Auto) 1+ H (Negative) Urine Mucus Present A (None Prsent) POC Ur Test (NEG) 01/26/20 01/26/20 01/26/20 Range/Units 19:10 19:10 19:10 WBC 15.40 H (4.8-10.8) K/uL RBC 4.87 (4.2-5.4) M/uL Hgb 13.4 (12.0-16.0) g/dL Hct 40.0 (37-47) % MCV 82.1 (80-100) fL MCH 27.5 (25-34) pg MCHC 33.5 (32-36) g/dL RDW Std Deviation 42.4 (36.4-46.3) fL RDW Coeff of [place] 14.1 (11.5-14.5) % Plt Count 404 H (130-400) K/uL MPV 9.0 (7.4-10.4) fL Immature Gran % (Auto) 0.3 % Neut % (Auto) 89.6 % Lymph % (Auto) 7.2 % [place] % (Auto) 2.3 % Eos % (Auto) 0.6 % Baso % (Auto) 0.0 % Neut # (Auto) 13.80 H (1.4-6.5) K/uL Lymph # (Auto) 1.11 L (1.2-3.4) K/uL [place] # (Auto) 0.36 (0.11-0.59) K/uL Eos # (Auto) 0.09 (0-0.5) K/uL Baso # (Auto) 0.00 (0-0.2) K/uL Immature Gran # (Auto) 0.04 H (0.00-0.02) K/uL Sodium 139 (136-145) mmol/L Potassium 3.8 (3.5-5.1) mmol/L Chloride 105 (98-107) mmol/L Carbon Dioxide 24 (21-32) mmol/L Anion Gap 10.0 (3-11) BUN 9 (7-18) mg/dl Creatinine 1.00 (0.6-1.2) mg/dl Est Cr Clr Drug Dosing 99.7 ml/min Est GFR ( Amer) 80.5 Est GFR (Non-Af Amer) 69.4 BUN/Creatinine Ratio 8.8 L (10-20) Glucose 131 H (70-99) mg/dl Estimat Average Glucose 131 mg/dl Hemoglobin A1c 6.2 H (4.5-5.6) % Lactate (0.4-2.0) mmol/L Calcium 8.3 L (8.5-10.1) mg/dl Magnesium (1.8-2.4) mg/dl Total Bilirubin 0.7 (0.2-1) mg/dl Direct Bilirubin (0-0.2) mg/dl AST 53 H (15-37) U/L ALT 97 H (12-78) U/L Alkaline Phosphatase 67 (45-117) U/L Troponin I < 0.015 (0-0.045) ng/ml Total Protein 7.5 (6.4-8.2) gm/dl Albumin 3.0 L (3.4-5.0) gm/dl Globulin 4.5 H (2.5-4.0) gm/dl Albumin/Globulin Ratio 0.7 L (0.9-2) TSH 0.630 (0.300-4.500) uIu/ml Urine Color Urine Appearance (Clear) Urine pH (4.5-7.5) Ur Specific [place] (1.000-1.030) Urine Protein (Negative) Urine Glucose (UA) (Negative) Urine Ketones (Negative) Urine Blood (Negative) Urine Nitrite (Negative) Urine Bilirubin (Negative) Urine Urobilinogen (Negative) Ur Leukocyte Esterase (Negative) Urine WBC (Auto) (0-5) /hpf Urine RBC (Auto) (0-4) /hpf U Hyaline Cast (Auto) (0-5) /lpf U Epithel Cells (Auto) (0-5) /lpf Urine Bacteria (Auto) (Negative) Urine Mucus (None Prsent) POC Ur Test (NEG) Diagnostic Findings US breast LT limited CLINICAL HISTORY: Left breast infection. R/o abscess. COMPARISON STUDY: Chest CT 01/24/2020. FINDINGS: Real-time sonographic imaging of the left breast was performed to evaluate for an abscess. A left breast implant is noted. Immediately adjacent to the left breast implant there is a thin sliver of fluid. This measures a maximal thickness of 5 mm with a greatest length of 6 cm. This is best seen at the 6:00 location of the breast. This has improved compared to the recent chest CT. IMPRESSION: Decrease in size in the small amount of fluid abutting the inferior aspect of the left breast implant. This is nonspecific and could represent a postoperative seroma. Secondary infection cannot be excluded on the basis of imaging alone.
[2020-01-27 15:27] VITALS: BP 97/65; PULSE 87; TEMP 97.9; O2SAT 96
--- NOTE | 2020-01-27 16:06 | Hospitalist Progress Note ---
Date of Service January 27, 2020 Assessment & Plan (1) Sepsis: Keflex hypersensitivity hx left breast cancer status post surgery/radiation on Tamoxifen Rx Possible infected seroma on ultrasound concerning on admission Initially concern for sepsis, however patient presents with hypersensitivity reaction to medication, Keflex Patient was evaluated by general surgery, no concern for cellulitis, radiation skin changes noted, reviewed ultrasound which seems to be showing improvement General surgery recommends follow-up in 1 week and also recommend to follow-up with patient's plastic surgeon Blood cultures and urine cultures obtained, pending, patient needs to follow-up with primary care provider, and discuss results when available Patient currently clinically much improved, patient's main symptoms was rash for which she presented to the hospital, which is now resolved Patient will be discharged and continue her home Bactrim, she was advised not to take Keflex or any related medication to Keflex While inpatient, she received daptomycin, and aztreonam May benefit from [facility] ID consult in the future if further antibiotic guidance needed DVT prophylaxis per Lovenox subcu Full code Admission and Anticipated Discharge Date Admission Date: January 26, 2020 Subjective Patient is currently sitting up in bed, in no acute distress. She says that she feels much better, her rash has significantly improved. She is inquiring about going home. She states that she does not have much pain in her left breast area, says that this is about her baseline. She came to hospital mainly because of the rash. Patient was seen by general surgery, who also reviewed her breast ultrasound. Ultrasound seems to be showing improvement. No signs of cellulitis, radiation changes noted. Recommend to follow-up with surgery service in 1 week, and with her plastic surgeon. Patient currently denies any fevers, chills, chest pain, shortness of breath, abdominal pain, nausea or vomiting. Overall feels well, and feels that she can return home. Review of Systems Review of Systems: All systems reviewed & are unremarkable except as noted in HPI & below Constitutional: no fever and no chills Respiratory: no cough and no dyspnea Cardiovascular: no chest pain and no palpitations Gastrointestinal: no abdominal pain, no nausea and no vomiting Physical Exam Physical Exam: GENERAL: Comfortable, pleasant, obese, no respiratory distress SKIN: Normal color, warm HEENT: Bespectacled, [place] palpebral conjunctivae, no ptosis, dry buccal mucosa NECK : Supple, no tenderness CHEST : CTA, induration left breast with minimal tenderness HEART : RRR, no obvious murmurs ABDOMEN: Soft, nontender, obese, positive bowel sounds EXTREMITIES : No LE swelling/tenderness, no other conspicuous deformities noted NEUROLOGIC : Coherent, no facial asymmetry, speech fluent, moves all 4 extremities spontaneously and without difficulty Results & Data Results & Data ([facility]) Vital Signs (Past 12 Hours) Vital Signs Temp Pulse Resp BP Pulse Ox 01/27/20 15:26 36.6 C 87 18 97/65 L 96 01/27/20 11:19 36.7 C 85 18 105/68 94 Laboratory Results 01/27/20 01/27/20 01/26/20 Range/Units 06:43 06:43 19:32 WBC 9.99 (4.8-10.8) K/uL RBC 4.20 (4.2-5.4) M/uL Hgb 11.5 L (12.0-16.0) g/dL Hct 34.4 L (37-47) % MCV 81.9 (80-100) fL MCH 27.4 (25-34) pg MCHC 33.4 (32-36) g/dL RDW Std Deviation 41.8 (36.4-46.3) fL RDW Coeff of Mitchell 14.0 (11.5-14.5) % Plt Count 325 (130-400) K/uL MPV 8.9 (7.4-10.4) fL Immature Gran % (Auto) 0.2 % Neut % (Auto) 93.3 % Lymph % (Auto) 5.6 % Caroline % (Auto) 0.9 % Eos % (Auto) 0.0 % Baso % (Auto) 0.0 % Neut # (Auto) 9.32 H (1.4-6.5) K/uL Lymph # (Auto) 0.56 L (1.2-3.4) K/uL Caroline # (Auto) 0.09 L (0.11-0.59) K/uL Eos # (Auto) 0.00 (0-0.5) K/uL Baso # (Auto) 0.00 (0-0.2) K/uL Immature Gran # (Auto) 0.02 (0.00-0.02) K/uL Sodium 141 (136-145) mmol/L Potassium 4.0 (3.5-5.1) mmol/L Chloride 110 H (98-107) mmol/L Carbon Dioxide 24 (21-32) mmol/L Anion Gap 7.0 (3-11) BUN 8 (7-18) mg/dl Creatinine 0.70 D (0.6-1.2) mg/dl Est Cr Clr Drug Dosing 142.4 ml/min Est GFR ( Amer) 123.9 Est GFR (Non-Af Amer) 106.9 BUN/Creatinine Ratio 12.2 (10-20) Glucose 154 H (70-99) mg/dl Estimat Average Glucose mg/dl Hemoglobin A1c (4.5-5.6) % Lactate (0.4-2.0) mmol/L Calcium 8.1 L (8.5-10.1) mg/dl Magnesium (1.8-2.4) mg/dl Total Bilirubin 0.4 (0.2-1) mg/dl Direct Bilirubin 0.1 (0-0.2) mg/dl AST 36 (15-37) U/L ALT 89 H (12-78) U/L Alkaline Phosphatase 57 (45-117) U/L Troponin I (0-0.045) ng/ml Total Protein 6.8 (6.4-8.2) gm/dl Albumin 2.5 L (3.4-5.0) gm/dl Globulin (2.5-4.0) gm/dl Albumin/Globulin Ratio (0.9-2) TSH (0.300-4.500) uIu/ml Urine Color Urine Appearance (Clear) Urine pH (4.5-7.5) Ur Specific [place] (1.000-1.030) Urine Protein (Negative) Urine Glucose (UA) (Negative) Urine Ketones (Negative) Urine Blood (Negative) Urine Nitrite (Negative) Urine Bilirubin (Negative) Urine Urobilinogen (Negative) Ur Leukocyte Esterase (Negative) Urine WBC (Auto) (0-5) /hpf Urine RBC (Auto) (0-4) /hpf U Hyaline Cast (Auto) (0-5) /lpf U Epithel Cells (Auto) (0-5) /lpf Urine Bacteria (Auto) (Negative) Urine Mucus (None Prsent) POC Ur Test NEG (NEG) 01/26/20 01/26/2020 Range/Units 19:32 19:30 19:10 WBC (4.8-10.8) K/uL RBC (4.2-5.4) M/uL Hgb (12.0-16.0) g/dL Hct (37-47) % MCV (80-100) fL MCH (25-34) pg MCHC (32-36) g/dL RDW Std Deviation (36.4-46.3) fL RDW Coeff of Mitchell (11.5-14.5) % Plt Count (130-400) K/uL MPV (7.4-10.4) fL Immature Gran % (Auto) % Neut % (Auto) % Lymph % (Auto) % Caroline % (Auto) % Eos % (Auto) % Baso % (Auto) % Neut # (Auto) (1.4-6.5) K/uL Lymph # (Auto) (1.2-3.4) K/uL Caroline # (Auto) (0.11-0.59) K/uL Eos # (Auto) (0-0.5) K/uL Baso # (Auto) (0-0.2) K/uL Immature Gran # (Auto) (0.00-0.02) K/uL Sodium (136-145) mmol/L Potassium (3.5-5.1) mmol/L Chloride (98-107) mmol/L Carbon Dioxide (21-32) mmol/L Anion Gap (3-11) BUN (7-18) mg/dl Creatinine (0.6-1.2) mg/dl Est Cr Clr Drug Dosing ml/min Est GFR ( Amer) Est GFR (Non-Af Amer) BUN/Creatinine Ratio (10-20) Glucose (70-99) mg/dl Estimat Average Glucose mg/dl Hemoglobin A1c (4.5-5.6) % Lactate 1.2 (0.4-2.0) mmol/L Calcium (8.5-10.1) mg/dl Magnesium 2.2 (1.8-2.4) mg/dl Total Bilirubin (0.2-1) mg/dl Direct Bilirubin (0-0.2) mg/dl AST (15-37) U/L ALT (12-78) U/L Alkaline Phosphatase (45-117) U/L Troponin I (0-0.045) ng/ml Total Protein (6.4-8.2) gm/dl Albumin (3.4-5.0) gm/dl Globulin (2.5-4.0) gm/dl Albumin/Globulin Ratio (0.9-2) TSH Cancelled (0.300-4.500) uIu/ml Urine Color [place] Urine Appearance Cloudy A (Clear) Urine pH 5.0 (4.5-7.5) Ur Specific [place] 1.028 (1.000-1.030) Urine Protein Trace H (Negative) Urine Glucose (UA) Negative (Negative) Urine Ketones Trace H (Negative) Urine Blood Negative (Negative) Urine Nitrite Positive A (Negative) Urine Bilirubin 1+ H (Negative) Urine Urobilinogen Negative (Negative) Ur Leukocyte Esterase Trace H (Negative) Urine WBC (Auto) 5-10 H (0-5) /hpf Urine RBC (Auto) 5-10 H (0-4) /hpf U Hyaline Cast (Auto) 0 (0-5) /lpf U Epithel Cells (Auto) >30 H (0-5) /lpf Urine Bacteria (Auto) 1+ H (Negative) Urine Mucus Present A (None Prsent) POC Ur Test (NEG) 01/26/20 01/26/20 01/26/20 Range/Units 19:10 19:10 19:10 WBC 15.40 H (4.8-10.8) K/uL RBC 4.87 (4.2-5.4) M/uL Hgb 13.4 (12.0-16.0) g/dL Hct 40.0 (37-47) % MCV 82.1 (80-100) fL MCH 27.5 (25-34) pg MCHC 33.5 (32-36) g/dL RDW Std Deviation 42.4 (36.4-46.3) fL RDW Coeff of Mitchell 14.1 (11.5-14.5) % Plt Count 404 H (130-400) K/uL MPV 9.0 (7.4-10.4) fL Immature Gran % (Auto) 0.3 % Neut % (Auto) 89.6 % Lymph % (Auto) 7.2 % Caroline % (Auto) 2.3 % Eos % (Auto) 0.6 % Baso % (Auto) 0.0 % Neut # (Auto) 13.80 H (1.4-6.5) K/uL Lymph # (Auto) 1.11 L (1.2-3.4) K/uL Caroline # (Auto) 0.36 (0.11-0.59) K/uL Eos # (Auto) 0.09 (0-0.5) K/uL Baso # (Auto) 0.00 (0-0.2) K/uL Immature Gran # (Auto) 0.04 H (0.00-0.02) K/uL Sodium 139 (136-145) mmol/L Potassium 3.8 (3.5-5.1) mmol/L Chloride 105 (98-107) mmol/L Carbon Dioxide 24 (21-32) mmol/L Anion Gap 10.0 (3-11) BUN 9 (7-18) mg/dl Creatinine 1.00 (0.6-1.2) mg/dl Est Cr Clr Drug Dosing 99.7 ml/min Est GFR ( Amer) 80.5 Est GFR (Non-Af Amer) 69.4 BUN/Creatinine Ratio 8.8 L (10-20) Glucose 131 H (70-99) mg/dl Estimat Average Glucose 131 mg/dl Hemoglobin A1c 6.2 H (4.5-5.6) % Lactate (0.4-2.0) mmol/L Calcium 8.3 L (8.5-10.1) mg/dl Magnesium (1.8-2.4) mg/dl Total Bilirubin 0.7 (0.2-1) mg/dl Direct Bilirubin (0-0.2) mg/dl AST 53 H (15-37) U/L ALT 97 H (12-78) U/L Alkaline Phosphatase 67 (45-117) U/L Troponin I < 0.015 (0-0.045) ng/ml Total Protein 7.5 (6.4-8.2) gm/dl Albumin 3.0 L (3.4-5.0) gm/dl Globulin 4.5 H (2.5-4.0) gm/dl Albumin/Globulin Ratio 0.7 L (0.9-2) TSH 0.630 (0.300-4.500) uIu/ml Urine Color Urine Appearance (Clear) Urine pH (4.5-7.5) Ur Specific [place] (1.000-1.030) Urine Protein (Negative) Urine Glucose (UA) (Negative) Urine Ketones (Negative) Urine Blood (Negative) Urine Nitrite (Negative) Urine Bilirubin (Negative) Urine Urobilinogen (Negative) Ur Leukocyte Esterase (Negative) Urine WBC (Auto) (0-5) /hpf Urine RBC (Auto) (0-4) /hpf U Hyaline Cast (Auto) (0-5) /lpf U Epithel Cells (Auto) (0-5) /lpf Urine Bacteria (Auto) (Negative) Urine Mucus (None Prsent) POC Ur Test (NEG) Medications Administered Current Inpatient Medications Acetaminophen (Acetaminophen 325 Mg Tab) 325 mg PO Q6H PRN PRN Reason: Mild Pain Stop: 02/26/20 00:16 Aztreonam (Aztreonam Consult Active) 1 ea N/A UD PRN PRN Reason: Consult Stop: 02/26/20 02:21 Diphenhydramine HCl (Diphenhydramine Hcl 50 Mg/Ml Vial) 25 mg IV Q6H PRN PRN Reason: Allergic Reaction Stop: 02/26/20 00:16 Enoxaparin Sodium (Enoxaparin Inj 40 Mg/0.4 Ml Syr) 40 mg SQ QAM CATRACHO Stop: 02/26/20 08:59 Last Admin: 01/27/20 09:20 Dose: 40 mg Documented by: Lorazepam (Ativan) 0.5 mg in 1 mls @ 1 mls/min IV Q4H PRN PRN Reason: Anxiety/Agitation Stop: 02/26/20 00:16 Daptomycin 350 mg/ Syringe 7 mls @ 3.5 mls/min IV Q24H CATRACHO; Protocol Stop: 02/02/20 21:59 Aztreonam 2,000 mg/ Dextrose 110 mls @ 110 mls/hr IV Q8H CATRACHO; Protocol Stop: 02/03/20 07:59 Last Admin: 01/27/20 15:48 Dose: 110 mls/hr Documented by: Ibuprofen (Ibuprofen 200 Mg Tab) 200 mg PO Q6H PRN PRN Reason: Mild Pain Stop: 02/26/20 00:16 Ketorolac Tromethamine (Ketorolac Tromethamine 15 Mg/Ml Vial) 15 mg IV Q6H PRN PRN Reason: Pain Stop: 02/01/20 00:16 Miscellaneous Information (Daptomycin Consult Active) 1 ea N/A UD PRN PRN Reason: Consult Stop: 02/25/20 21:35 Tamoxifen Citrate (Tamoxifen Citrate 10 Mg Tablet) [facility] [place] Stop: 02/26/20 08:59 Last Admin: 01/27/20 07:49 Dose: 20 mg Documented by:
--- NOTE | 2020-01-27 16:06 | Discharge Summary ---
Date of Service January 27, 2020 Admission HPI Per Admitting Provider History obtained from patient, family, and records. Medical history significant for left breast cancer status post surgery/radiation on Tamoxifen Rx. Last 2012 under obstetrics service for childbirth via vaginal delivery. Patient underwent L mastectomy with casting chipper placement for purposes of reconstruction for breast cancer last August 2019 by [facility]. 2 weeks ago, patient noted fever, left breast area swelling for which Bactrim was prescribed. Minimal improvement with outpatient Bactrim course. On follow-up at [facility] urgent care 2 days ago, increased firmness/redness noted on L breast. Patient given prescription for Keflex. Outpatient CT chest without significant findings except for left-sided breast implant. On follow-up with plastic surgeon yesterday, patient feeling better after first few doses of Keflex. Recommendation was to continue Keflex and to switch to Bactrim if with fever or pain. Consider chronic suppressive oral antibiotics as a bridge to the [facility] flap reconstructive surgery June 2020 as per records. Yesterday afternoon, patient noted hives on her arms, torso and neck. Patient attributed hives to Keflex hypersensitivity. Patient stopped Keflex and took Benadryl. Plastic surgeon recommended Bactrim Rx as Keflex substitute. Today, patient noted worsening hives all over her body despite Benadryl Rx and stopping Keflex. Face, eyes and throat were starting to get tight. Patient denies chest pain, S OB. Dry cough symptoms from irritation as per patient. At the ER, patient given Benadryl, Solu-Medrol for hypersensitivity reaction. IV Daptomycin given at the ER for possible sepsis. 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 Discharge Exam GENERAL: Middle-aged female, sitting up in bed, comfortable, pleasant, obese, in no acute distress HEENT: Normocephalic, atraumatic, bespectacled, EOMI, [place] palpebral conjunctivae, no ptosis NECK : Supple, no tenderness CHEST : CTA, no wheezing, rhonchi or crackles noted, L breast minimal tenderness to palpation, patient states this is her baseline HEART : RRR, no obvious murmurs ABDOMEN: Soft, nontender, obese, positive bowel sounds EXTREMITIES : No LE swelling/tenderness, moves extremities spontaneously and without difficulty NEUROLOGIC : Alert and oriented x3, no facial asymmetry, speech fluent, moves all 4 extremities spontaneously and without difficulty SKIN: Normal color, warm, no visible rash or lesions noted Discharge Data Allergies Allergy/AdvReac Type Severity Reaction Status Date / Time cephalexin Allergy Intermediate Itchiness Verified 01/26/20 22:03 Consultations 01/26/20 21:43 ED Decision to Admit Stat 01/27/20 00:17 Consult General Surgery Routine Ordered Studies 01/26/20 19:13 US breast LT limited Stat IMPRESSION: Decrease in size in the small amount of fluid abutting the inferior aspect of the left breast implant. This is nonspecific and could represent a postoperative seroma. Secondary infection cannot be excluded on the basis of imaging alone. Hospital Course (1) Sepsis: Keflex hypersensitivity hx left breast cancer status post surgery/radiation on Tamoxifen Rx Possible infected seroma on ultrasound concerning on admission Initially concern for sepsis, however patient presents with hypersensitivity reaction to medication, Keflex Patient was evaluated by general surgery, no concern for cellulitis, radiation skin changes noted, reviewed ultrasound which seems to be showing improvement General surgery recommends follow-up in 1 week and also recommend to follow-up with patient's plastic surgeon Blood cultures and urine cultures obtained, pending, patient needs to follow-up with primary care provider, and discuss results when available Patient currently clinically much improved, patient's main symptoms was rash for which she presented to the hospital, which is now resolved Patient will be discharged and continue her home Bactrim, she was advised not to take Keflex or any related medication to Keflex While inpatient, she received daptomycin, and aztreonam May benefit from [facility] ID consult in the future if further antibiotic guidance needed Total Time Total Time Spent Total Time Spent (In Minutes): 40 Total Time Includes: Examination of the Patient, Discharge Planning, Medication Reconciliation and Communication With Other Providers Discharge Plan Discharge Items Patient Disposition: Home - Self-Care Reason For Visit: SEPSIS, HYPERSENSITIVITY RXN Discharge Diagnosis: 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 Vernell Borja. If you need to change this appointment, please call [phone].) Mai Diop PA-C [Physician Family Service Counselor] - (Follow-up with [facility] for re-check. Call office at [phone] to make an appointment.) Diet: Regular Addtl Attending Provider Instructions: If you develop increase in left chest wall pain, fever, chills, please call your plastic surgeons office for further recommendations. Phone number for general surgery is also provided for you, please call with any questions. It is recommended that you follow-up with them within 1 week, please make an appointment. Continue taking your antibiotic, Bactrim, do not take Keflex. Please follow-up with your primary care doctor within 1 week. Blood cultures and urine cultures were obtained during your admission, results will be available during your follow-up appointment. Make sure to follow-up with your plastic surgeon as already scheduled or earlier as needed. Addtl Garbage Collector Driver Provider Instructions: If you develop increase in left chest wall pain, fever, chills, please call your plastic surgeons office for further recommendations. Pending Studies at Discharge: Yes Stand-Alone Forms: My [employer], Smoking Cessation Medications and DC Order Prescriptions: Continued tamoxifen 20 mg tablet 20 mg PO QAM RF: 0 Zoladex 3.6 mg implant 3.6 mg SQ Q28D RF: 0 hydroxyzine HCl 50 mg tablet 50 mg PO TID PRN (Reason: Itching) RF: 0 sulfamethoxazole-trimethoprim 800-160 mg tablet 1 tab PO BID RF: 0 Discharge Orders: Discharge Order (Routine); Ordered 01/27/20 Ordered By: Ken Messer/Other Patient Handouts: Prediabetes, Diabetes: Meal Planning, A1C Admission Data Admit Date/Time: 01/26/20 22:55 Attending Provider: Ken Lozano Admit Provider: Jasvir Baldwin Primary Care Provider: Manuela Kim Other Providers: Hans Naranjo ; Liz Galeas ; Katie Fox ; Ben Lau ; Lenny Dsouza ; Radhika Mock ; Sivakumar Reyna ; Mai Diop ; Italo De Luna Jr ; Lizz Person ; Michelle Dallas ; Jasvir Baldwin Other Interventions: Discharge Summary Assessment (RN) Last Done: 01/27/20 16:17
[2020-01-27] MEDS ORDERED: DAPTOmycin 350 MG in SYRINGE 0 ML IV SCH (22:00)
--- NOTE | 2020-01-27 22:35 | Electrocardiogram Report ---
Test Reason : Blood Pressure : / mmHG Vent. Rate : 109 BPM Atrial Rate : 109 BPM P-R Int : 140 ms QRS Dur : 086 ms QT Int : 330 ms P-R-T Axes : 033 062 041 degrees QTc Int : 444 ms Sinus tachycardia Otherwise normal ECG No previous ECGs available Confirmed by Tavo Glass ([id number]) on 01/27/2020 10:34:58 PM Referred By: REFERRED SELF Confirmed By:Tavo Glass
== END 2020-01-27 17:19 | disposition home or self-care (01) | DRG 607 ==
LOC: ED 18:36 → 2W 22:55